=== PATIENT | female | born 1985 | race Caucasian/White ===

== ENCOUNTER → 2020-02-04 08:15 | Outpatient (CLI) | payer OTHER, SELFPAY ==
--- NOTE | ~2020-02-04 | US_ITS ---
US OB transvaginal DATE: 02/04/2020 08:43 INDICATION: History of spontaneous . Positive test. No problems. TECHNIQUE: Real-time imaging via transvaginal approach COMPARISON: 09/11/2019 obstetrical ultrasound FINDINGS: The uterus measures 11.1 cm height by 7 cm anteroposterior dimension. A normal appearing gestational sac with surrounding hyperechogenicity consistent with decidual reacti on is noted. A yolk sac and pole are detected. heart rate 132 bpm. [place]-rump length measurement averages 0.87 cm, consistent with estimated gestational age of 6 weeks 6 days +/- 4 days; DOUG: 09/23/2020 compared to 09/19/2020 by LMP. There is an approximately 12 by up to 7 mm fluid collection beneath the gestational sac and another f luid collection superiorly on the left measuring 9 x 12 x 16 mm. Right ovary measures 4.8 x 3.3 x 4.5 cm with 2 cysts, measuring 2.2 x 2.3 x 1.4 cm and 1.3 x 2.2 x 1. 4 cm. The left ovary is not visualized. No free fluid is evident in the pelvis. IMPRESSION: Estimated gestational age: 6 weeks 6 days +/- 4 days; DOUG: 09/23/2020 2 small areas of subchorionic hemorrhage are suggested Right ovarian cysts Reviewed, dictated and finalized at [facility]. Reviewed, dictated and finalized at location B. IMPRESSION: Estimated gestational age: 6 weeks 6 days +/- 4 days; DOUG: 09/23/20 20 2 small areas of subchorionic hemorrhage are suggested Right ovarian cysts
== END ==
PROVIDERS: PCP Family Medicine; Visit Provider Obstetrics & Gynecology Gynecology
DX: O26.21 Pregnancy care for patient with recurrent pregnancy loss, first trimester (principal); Z3A.01 Less than 8 weeks gestation of pregnancy; N83.201 Unspecified ovarian cyst, right side
CPT/HCPCS: 76817

== ENCOUNTER 2020-02-29 09:19 | Outpatient (CLI) | payer OTHER, SELFPAY ==
--- NOTE | ~2020-02-29 | US_ITS ---
EXAMINATION: US OB <= 14 weeks fetus DATE: 02/29/2020 09:52 INDICATION: Subchorionic hemorrhage TECHNIQUE: Real-time pelvic ultrasound utilizing both a transvaginal and transabdominal probe was pe rformed. The interpreting radiologist was not present for the study. COMPARISON: 02/04/2020 FINDINGS: The uterus measures 13.1 x 6.3 x 8.3 cm. There is an intrauterine gestational sac. A yolk sac and fe cornelio pole are identified. The crown rump length measures 3.8 cm, which is concordant with both the pro vided estimated gestational age of 10 weeks and 6 days as well as the estimated gestational age based on the earlier ultrasound of 10 weeks and 3 days. heart motion is identified measuring 165 marimar ts per minute (bpm) by M-mode Doppler. The right ovary measures 4.1 x 2.7 x 4.0 cm and contains a 3.2 cm anechoic corpus luteum cyst. The le ft ovary measures 2.5 x 2.0 x 1.7 cm. Vascular flow identified at both ovaries on color Doppler. Ther e is no free fluid in the pelvis. IMPRESSION: 1. Single living fetus with heart rate of 165 bpm. 2. [place]-rump length of 3.8 cm responding to an estimated gestational age by ultrasound of 10 weeks 5 day which is between the provided and previously ultrasound estimated dates of delivery (DOUG) of and 09/23/2020 respectively. Reviewed, dictated and finalized at location A. IMPRESSION: 1. Single living fetus with heart rate of 165 bpm. 2. [place]-rump length of 3.8 cm responding to an estimated gestational age by ul trasound of 10 weeks 5 day which is between the provided and previously ultraso und estimated dates of delivery (DOUG) of 09/20/2020 and 09/23/2020 respectively .
== END 2020-02-29 09:20 | disposition home or self-care (01) ==
LOC: ANHIMG 09:22
PROVIDERS: PCP Family Medicine; Visit Provider Obstetrics & Gynecology Gynecology
DX: O36.8911 Maternal care for other specified fetal problems, first trimester, fetus 1 (principal); Z3A.10 10 weeks gestation of pregnancy
CPT/HCPCS: 76801

== ENCOUNTER 2020-03-14 11:00 | Outpatient (CLI) | payer OTHER, SELFPAY ==
--- NOTE | ~2020-03-14 | US_ITS ---
EXAMINATION: US OB <= 14 weeks fetus DATE: 03/14/2020 11:38 INDICATION: Follow-up subchorionic hemorrhage TECHNIQUE: Real-time transabdominal and transvaginal obstetric ultrasound. FINDINGS: Comparison to multiple prior studies sequentially, with oldest reviewed study dated 020. The uterus measures 12.9 x 8.7 x 10.1 cm. There is an intrauterine gestational sac, with pole i dentified. No subchorionic hemorrhage identified. The crown rump length measures 6.45 cm. heart tones are identified measuring 159 bpm. Placenta is posterior measuring 2.1 cm to the cervix. There is a corpus luteal cyst of the right ovary measuring 2.6 cm. Left ovary is unremarkable. IMPRESSION: 1. SL IUP with an EGA of 12 weeks, 3 days (EDC by initial ultrasound of 09/23/2020). 2: 2.6 cm corpus luteal cyst of the right ovary. Reviewed, dictated and finalized at location A. IMPRESSION: 1. SL IUP with an EGA of 12 weeks, 3 days (EDC by initial ultrasound of 020). 2: 2.6 cm corpus luteal cyst of the right ovary.
== END 2020-03-14 11:01 | disposition home or self-care (01) ==
PROVIDERS: PCP Family Medicine; Visit Provider Obstetrics & Gynecology Gynecology
DX: O34.80 Maternal care for other abnormalities of pelvic organs, unspecified trimester (principal); N83.11 Corpus luteum cyst of right ovary; Z3A.00 Weeks of gestation of pregnancy not specified
CPT/HCPCS: 76801

== ENCOUNTER 2020-04-17 12:47 | Outpatient (CLI) | payer OTHER, SELFPAY ==
--- NOTE | 2020-04-17 | ECG_ITS ---
Measurements Intervals [place] Rate: 72 P: 8 SD: 148 QRS: 25 QRSD: 84 T: 7 QT: 390 QTc: 427 Interpretive Statements SINUS RHYTHM BORDERLINE T WAVE ABNORMALITY- INFERIOR LEADS BORDERLINE ECG Electronically Signed On 04-17-2020 13:43:29 CDT by Delonte Bradford D.O.
== END 2020-04-17 12:48 | disposition home or self-care (01) ==
LOC: ANHCARD 12:49
PROVIDERS: PCP Family Medicine; Visit Provider Nurse Practitioner
DX: R00.2 Palpitations (principal); R94.31 Abnormal electrocardiogram [ECG] [EKG]
CPT/HCPCS: 93005

== ENCOUNTER 2020-04-23 13:49 | Outpatient (CLI) | payer OTHER, SELFPAY ==
--- NOTE | ~2020-04-23 | US_ITS ---
EXAMINATION: US OB limited DATE: 04/23/2020 14:17 INDICATION: Low lying placenta during second trimester of TECHNIQUE: Real-time ultrasound of the pelvis was performed. The interpreting radiologist was not pre sent for the study. COMPARISON: 03/14/2020 FINDINGS: There is a single living fetus in vertex presentation. The placenta is posterior and not low-lying w ith caudal margin approximately 5 cm from the internal cervical os. heart rate is 141 beats per minute (bpm). The amniotic fluid volume is subjectively normal. IMPRESSION: 1. Single living fetus in vertex presentation with heart rate of 141 bpm. 2. Posterior placenta with caudal margin approximately 5 cm from the internal cervical os. Reviewed, dictated and finalized at location A. IMPRESSION: 1. Single living fetus in vertex presentation with heart rate of 141 bpm . 2. Posterior placenta with caudal margin approximately 5 cm from the internal c ervical os.
== END 2020-04-23 13:50 | disposition home or self-care (01) ==
PROVIDERS: PCP Family Medicine; Visit Provider Obstetrics & Gynecology Gynecology
DX: O44.42 Low lying placenta NOS or without hemorrhage, second trimester (principal); Z3A.00 Weeks of gestation of pregnancy not specified
CPT/HCPCS: 76815

== ENCOUNTER → 2020-08-07 12:49 | Outpatient (CLI) | payer OTHER, SELFPAY ==
--- NOTE | ~2020-08-07 | US_ITS ---
EXAMINATION: US OB follow up DATE: 08/07/2020 13:19 INDICATION: Estimated size less than expected for estimated gestational age TECHNIQUE: Real-time ultrasound of the pelvis was performed. The interpreting radiologist was not pre sent for the study. COMPARISON: 04/23/2020 FINDINGS: There is a single living fetus in vertex presentation. The placenta is posterior. heart rate i s 134 beats per minute (bpm). The amniotic fluid index is 22.9 cm, which is normal (5th%-95%: 8.3-24 .5 cm at 33 weeks estimated gestational age). The following biometric data were obtained: BPD: 8.2 cm -> 33 weeks 0 days Head circumference: 31.3 cm -> 35 weeks 0 days Abdominal circumference: 30.1 cm -> 34 weeks 1 days Femur length: 6.5 cm -> 33 weeks 3 days These measurements are concordant. Head circumference to abdominal circumference ratio: 1.04 (normal range 0.95-1.11). Estimated weight: 2300 g (+/-) 345 g. or 5 lbs. 1 oz. (+/-) 12 oz. IMPRESSION: 1. Single living fetus in vertex presentation with heart rate of 134 bpm. 2. Normal amniotic fluid index of 22.9 cm. 3. Estimated weight is 48th percentile by Hadlock criteria when 09/20/2020 is used as the estim ated date of delivery (DOUG). Please correlate with clinical information or earlier ultrasounds for mo st accurate DOUG. Reviewed, dictated and finalized at location A. IMPRESSION: 1. Single living fetus in vertex presentation with heart rate of 134 bpm. 2. Normal amniotic fluid index of 22.9 cm. 3. Estimated weight is 48th percentile by Hadlock criteria when 0 is used as the estimated date of delivery (DOUG). Please correlate with clinic al information or earlier ultrasounds for most accurate DOUG.
== END ==
PROVIDERS: PCP Family Medicine; Visit Provider Obstetrics & Gynecology Gynecology
DX: O36.5990 Maternal care for other known or suspected poor fetal growth, unspecified trimester, not applicable or unspecified (principal); Z3A.00 Weeks of gestation of pregnancy not specified
CPT/HCPCS: 76816

== ENCOUNTER 2020-09-13 05:31 | Inpatient (IN) | payer OTHER, SELFPAY ==
[2020-09-13] VITALS (111 sets, daily range): BP systolic 76–138; BP diastolic 28–76; PULSE 56–120; RESP 16; TEMP 36.2–36.8; O2SAT 95–100; BMI 30.2
--- NOTE | 2020-09-13 06:40 | PC.NURSE ---
This patient, Mechelle Santiago, was admitted to Labor/Delivery/Recovery 107 on 09/13/20 at 05:31. Plans for labor, pain management and were discussed with patient. Patient/family oriented to hospital policies and general routines including ID bracelet, bed and alarms, visiting hours, pain management, procedures, bathroom and other care routines, personal items, smoking policy, room service/diet and guest tray routines, security routines, and visiting hours. Patient/Family are encouraged to report perceived risks to care and to ask questions if they do not understand what they are told or what they should do. See OBIX for further documentation.
[2020-09-13 06:54] LABS: Basophils Percent Auto 0.2 % (0.2-1.2); Eosinophils Absolute Auto 0.1 K/mm3 (0-0.3); Hematocrit 30.7 % (37.0-47.0); Hemoglobin 9.6 g/dL (12.0-15.0); Immature Granulocyte Absolute 0.12 K/mm3 (0.00-0.031); Immature Granulocyte Percent A 1.2 % (0-0.5); Lymphocytes Absolute Auto 1.66 K/mm3 (0.9-3.2); Lymphocytes Percent Auto 16.9 % (18.3-44.2); Mean Corpuscular HGB Conc 31.3 g/dl (32-36); Mean Corpuscular Hemoglobin 23.2 pg (26-34); Mean Corpuscular Volume 74.2 fl (80-100); Mean Platelet Volume 9.6 fl (7.4-10.4); Monocytes Absolute Auto 0.8 K/mm3 (0.1-0.6); Monocytes Percent Auto 7.6 % (2.6-8.5); Neutrophils Absolute Auto 7.2 K/mm3 (1.3-6.7); Neutrophils Percent Auto 73.1 % (45.5-73.1); Platelet Count Result 226 k/mm3 (150-375); Red Blood Count 4.14 M/mm3 (4.2-5.4); Red Cell Distribution Width 16.4 % (11.5-14.5); White Blood Count 9.8 K/mm3 (4.5-10.0)
[2020-09-13] MEDS: LACTATED RINGERS 1,000 ML 125 ML IV CONT ×4 (06:55→14:13)
[2020-09-13] MEDS: OXYTOCIN 30 UNITS/NS 500 ML 30 UNITS/500 ML BAG IV CONT (06:57)
--- NOTE | 2020-09-13 10:10 | WPDOBADMIT ---
Obstetrics - Admit Note Admission Note: record reviewed. No pertinent additions to the history and/or any subsequent changes in the physical findings that are not consistent with the expected course of the were found. Additions to the history and/or subsequent changes in the physical findings follow. None.Here for MIL at 39 wks. Cervix 1-2/50/-3 Vtx. AROM with clear fluid. FHTs reactive
--- NOTE | 2020-09-13 11:58 | WPDANESEPP ---
Anes - Eval Pre Procedure Procedure: Labor Epidural Date/Time: 09/13/20 11:58 Surgeon: Trae Preop Diagnosis: Labor Pain Pre Op Diagnosis: IOL Patient Data Age: 34 Gender: F Height: 5 ft 6 in Weight: 85 kg Last Vital Signs Temp 36.7 C 09/13/20 11:00 Pulse 85 09/13/20 11:58 BP 105/52 L 09/13/20 11:58 Pulse Ox 99 09/13/20 11:56 Allergies Allergy/AdvReac Type Severity Reaction Status Date / Time No Known Allergies Allergy Verified 09/13/20 07:21 Home Medications Medication Instructions Recorded Confirmed Type ferrous sulfate 325 mg PO BID #60 tablet 09/13/19 09/13/20 Rx PNV cmb#95-ferrous fumarate-FA 1 tablet PO DAILY 08/22/20 09/13/20 History [] ergocalciferol (vitamin D2) 1,250 mcg PO WEEKLY 08/22/20 09/13/20 History [Vitamin D2] Laboratory Tests 09/13/20 09/13/20 09/13/20 06:45 06:45 06:45 WBC 9.8 K/mm3 K/mm3 (4.5-10.0) RBC 4.14 M/mm3 L M/mm3 (4.2-5.4) Hgb 9.6 g/dL L D g/dL (12.0-15.0) Hct 30.7 % L % (37.0-47.0) MCV 74.2 fl L fl (80-100) MCH 23.2 pg L pg (26-34) MCHC 31.3 g/dl L g/dl (32-36) RDW 16.4 % H % (11.5-14.5) Plt Count 226 k/mm3 k/mm3 (150-375) MPV 9.6 fl fl (7.4-10.4) Immature Gran % (Auto) 1.2 % H % (0-0.5) Neut % (Auto) 73.1 % % (45.5-73.1) Lymph % (Auto) 16.9 % L % (18.3-44.2) [place] % (Auto) 7.6 % % (2.6-8.5) Eos % (Auto) 1.0 % % (0-4.4) Baso % (Auto) 0.2 % % (0.2-1.2) Lymph # (Auto) 1.66 K/mm3 K/mm3 (0.9-3.2) [place] # (Auto) 0.8 K/mm3 H K/mm3 (0.1-0.6) Eos # (Auto) 0.1 K/mm3 K/mm3 (0-0.3) Baso # (Auto) 0.0 K/mm3 K/mm3 (0.0-0.1) Abs Immat Gran (auto) 0.12 K/mm3 H K/mm3 (0.00-0.031) Absolute Neuts (auto) 7.2 K/mm3 H K/mm3 (1.3-6.7) Absolute Nucleated RBC 0.0 K/mm3 K/mm3 (0.0-0.012) Nucleated RBC % 0.0 % % (0.0-0.2) RPR Pending Blood Type O Positive Antibody Screen Negative : gestational age (DOUG 09/20/20) Patient hx anesthesia problems: none Family hx anesthesia problems: none PMFSH Past Medical History Medical History Anemia Gestational diabetes mellitus (normal spontaneous vaginal delivery) Surgical History Surgical History History of tonsillectomy Family History Family History Other No pertinent family history Social History Social History Smoking status: Never smoker Substance use: never Gender identity (if verbalized by the patient): Female Spiritual care concerns: No Exam Day of Procedure 09/13/20 11:58 Patient weight: normal Heart: regular rate and rhythm Lungs: normal air movement Airway: Mallampati scale class II Neurological: alert and oriented
[2020-09-13] MEDS: PHENYLEPHRINE 1,000 MCG/10 ML SYRINGE 100 MCG IV PUSH ×2 (13:37→14:17)
--- NOTE | 2020-09-13 15:18 | PM.OBPRVD ---
OB - Delivery Note Procedure Delivery date: 09/13/20 events: Labor Induction Intrapartal events: None Induction method: AROM and per pitocin protocol Delivery monitor: external FHT and external uterine Route of delivery: Laceration Description: None Specimen: No Estimated blood loss (mL): 100 Anesthesia type: Epidural Disposition: floor [place] Baby Date of : 09/13/20 Weeks of gestation at delivery: 39 Infant gender: Male Weight (pounds): 7 Weight (ounces): 11 presentation: vertex Placenta delivery description: Spontaneous cord vessel description: 3 Vessels score one minute: 8 score five minutes: 9
--- NOTE | 2020-09-13 15:19 | PM.OBDSVD ---
DS: Admitting Diagnosis Admitting Diagnosis Admitting Diagnosis: IOL for 39 weeks DS: Discharge Diagnosis Discharge Diagnosis (1) (normal spontaneous vaginal delivery): Code(s): O80 - Encounter for full-term uncomplicated delivery Status: Acute OB - DS: Summary OB Procedures : Ultrasound OB Procedures Intrapartum: Spontaneous Vag Delivery OB Procedures: : None Peripartum Data Infant Delivery Method: Natural Vaginal Laceration Description: None complications: none Status at Discharge Functional status at discharge: independent ambulation Overall status at discharge: patient is progressing back to baseline Time Spent with Patient Time attestation: Total time spent providing and/or coordinating discharge services: DS: Data Data Completed and Pending Labs on day of discharge: Labs from last 24 hours 09/13/20 09/13/20 09/13/20 06:45 06:45 06:45 WBC 9.8 RBC 4.14 L Hgb 9.6 L D Hct 30.7 L MCV 74.2 L MCH 23.2 L MCHC 31.3 L RDW 16.4 H Plt Count 226 MPV 9.6 Immature Gran % (Auto) 1.2 H Neut % (Auto) 73.1 Lymph % (Auto) 16.9 L [place] % (Auto) 7.6 Eos % (Auto) 1.0 Baso % (Auto) 0.2 Lymph # (Auto) 1.66 [place] # (Auto) 0.8 H Eos # (Auto) 0.1 Baso # (Auto) 0.0 Abs Immat Gran (auto) 0.12 H Absolute Neuts (auto) 7.2 H Absolute Nucleated RBC 0.0 Nucleated RBC % 0.0 RPR Pending Blood Type O Positive Antibody Screen Negative Discharge Plan Discharge Attending physician on discharge: Cristin Larkin Discharging Clinician: Cristin Larkin Anticipated Discharge Date/Time: 09/14/20 08:20 Patient Disposition: Home, Self-Care Activity: may shower and pelvic rest Diet: regular Discharge Instructions: Education: Mom and Baby Guide and Preeclampsia Handout Given to: Mother Follow-Up: Call your delivering provider's office for an appointment to be seen in: 6 Weeks Mom [facility]. Appointment Date/Time: September 16, 2020 at 11:00 am What to expect at your follow-up visit: Physical Assessment Call [phone] if you are unable to keep your appointment time. BREAST CARE: * Wear a snug supportive bra. * For engorgement discomfort: Breast Feeding: * Apply warm moist washcloths * Express milk as needed to relieve engorgement * Wear loose clothing * For sore nipples: * Identify correct latch-on * Apply warm moist washcloths before and after nursing * Air dry nipples after nursing * May apply Lansinoh cream to nipples EPISIOTOMY/PERINEAL CARE: * Until bleeding stops, use your kiara bottle after urinating * Change your pad frequently throughout the day * You may take sitz baths several times a day (fill your bathtub with warm water and soak for 20 minutes.) Do NOT bathe in the water * No tub baths until seen by your physician - You may shower ACTIVITY: * Rest as much as possible. * Do not exercise or lift anything heavier than your baby (such as laundry or other children.) * Avoid stairs or driving as much as possible. * Do not put anything into the vagina. No douching, tampons, or sexual activity until seen by physician. NOTIFY PHYSICIAN IF YOU HAVE ANY QUESTIONS OR IF ANY OF THE FOLLOWING SYMPTOMS OCCUR: * If your perineum becomes red, swollen, or more painful than what you have experienced in the hospital. * If your vaginal bleeding becomes foul smelling. * If your vaginal bleeding becomes more heavy than a period or if your bleeding changes from pink to bright red. However, you may pass an occasional walnut-sized clot once or twice for the first week . * If you experience a sharp, shooting pain in you calves. * If you discover a hard, reddened area on your breast or if you experience flu-like symptom
[2020-09-13] MEDS: OXYTOCIN 30 UNITS/NS 500 ML 30 UNITS/500 ML BAG 125 UNITS IV CONT (15:48)
[2020-09-13] MEDS: IBUPROFEN 600 MG TABLET PO (18:14)
[2020-09-13] MEDS: WITCH HAZEL 40 PADS 1 PAD TOPICAL (18:15)
[2020-09-13] MEDS: BENZOCAINE 20% AER SPR (*SP) 56 GM CAN 1 SPRAY TOPICAL (18:15)
--- NOTE | 2020-09-13 18:31 | OBPPTRN ---
Patient transferred to post room #282 via wheelchair. Support person present. Oriented to unit, room, information board, rooming in, admission packet and security measures. Patient verbalizes understanding.
[2020-09-13] MEDS: POLYSACCHARIDE IRON COMPLEX 150 MG CAPSULE PO (19:41)
[2020-09-14] MEDS: IBUPROFEN 600 MG TABLET PO ×3 (00:46→15:39)
[2020-09-14 04:18] LABS: Hematocrit 28.6 % (37.0-47.0); Hemoglobin 9.1 g/dL (12.0-15.0)
[2020-09-14 08:30] VITALS: BP 101/40; PULSE 80; RESP 20; TEMP 36.8
[2020-09-14] MEDS: POLYSACCHARIDE IRON COMPLEX 150 MG CAPSULE PO (08:32)
[2020-09-14] MEDS: DOCUSATE SODIUM 100 MG CAPSULE PO ×2 (08:32→15:39)
[2020-09-14] MEDS: MULTIVIT/MIN/PREN/FOL AC/IRON TABLET 1 TAB PO (08:32)
--- NOTE | 2020-09-14 09:50 | WPDANLDPN2 ---
Anes-Prog Note L&D Date/Time: 09/14/20 09:50 Comfortable throughout: labor and delivery Neuraxial method: epidural Epidural/Spinal procedure site: clean & non-tender Neuro status: Neuro function grossly intact. Cardiovascular status: normal Respiratory status: normal Airway patency: baseline Mental status: baseline Post-Op hydration status: normal Vital Signs: Last Vital Signs Temp 36.8 C 09/14/20 08:30 Pulse 80 09/14/20 08:30 Resp 20 09/14/20 08:30 BP 101/40 L 09/14/20 08:30 Pulse Ox 99 09/13/20 19:00 Pain score (VAS): 11/16 I/O: Intake & Output 09/13/20 09/14/20 09/14/20 23:59 07:59 15:59 Intake Total 1000 Output Total 148 Balance 852 Post-procedural complaints: none Patient feedback: Patient satisfied with anesthetic care.
--- NOTE | 2020-09-14 11:14 | PM.OBPNVD ---
OB - PN: Subj Subjective Date/time seen: 09/14/20 11:14 Doing well no complaints desires home today OB - PN: Obj Data Labs CBC & Chem 7: 09/14/20 04:00 Labs: Laboratory Results - last 24 hr 09/14/20 04:00 Hgb 9.1 L Hct 28.6 L OB - PN A/P Assessment and Plan (1) (normal spontaneous vaginal delivery): Code(s): O80 - Encounter for full-term uncomplicated delivery Status: Acute Assessment and Plan: continue with pp care. Time Spent With Patient Time: Total time spent is greater than 50% in coordination of care (as documented) at patient's floor/unit and/or counseling patient: Exam GI: Other: ff below umbilicus
[2020-09-15 12:34] LABS: Rapid Plasma Reagin Non-Reactive (NonReactive)
[2020-09-16 11:29] VITALS: BP 108/51; PULSE 69; RESP 16; TEMP 37.1; O2SAT 98
== END 2020-09-14 17:05 | disposition home or self-care (01) | DRG 807 ==
LOC: ANHLDR 15:20 → ANHOB2 09-14 15:48 → ANHLDR 09-17 06:34 → ANHOB2 09-17 06:34
PROVIDERS: Admitting Provider Obstetrics & Gynecology Gynecology; PCP Family Medicine; Visit Provider Obstetrics & Gynecology
DX: O24.429 Gestational diabetes mellitus in childbirth, unspecified control (principal); Z37.0 Single live birth; Z3A.39 39 weeks gestation of pregnancy; O99.02 Anemia complicating childbirth; D64.9 Anemia, unspecified; O36.8330 Maternal care for abnormalities of the fetal heart rate or rhythm, third trimester, not applicable or unspecified
CPT/HCPCS: 36415; 85014; 85018; 85025; 86592; 86850; 86900; 86901; A9270; J2370; J2590; J2795; J7120